=== PATIENT | female | born 1955 | race Caucasian/White ===

== ENCOUNTER 2017-10-26 11:23 | Emergency (ER) | payer MEDICARE, OTHER ==
[~2017-10-26] VITALS: Ht 152.4 cm; Wt 64.9 kg
--- NOTE | 2017-10-26 11:55 | NUR ---
A/O X4. VSS. PT STABLE CONDITION. NEG ACUTE DISTRESS. NECK PAIN X 2 DAYS, DENIES ANY INJURY. SAFTEY MEASURES IN PLACE.
[2017-10-26] MEDS ORDERED: CYCLOBENZAPRINE 10 MG TABLET ONE (11:58)
[2017-10-26] MEDS ORDERED: IBUPROFEN 600 MG TABLET PO ONE ×2 (11:59→12:00)
[2017-10-26] MEDS ORDERED: CYCLOBENZAPRINE 10 MG TABLET PO ONE (12:00)
[2017-10-26 12:19] VITALS: BP 132/70
== END 2017-10-26 12:20 | disposition home or self-care (01) ==
LOC: ER 11:28
DX: S13.4XXA Sprain of ligaments of cervical spine, initial encounter (principal); I10 Essential (primary) hypertension; J45.909 Unspecified asthma, uncomplicated; E11.9 Type 2 diabetes mellitus without complications; Z86.718 Personal history of other venous thrombosis and embolism; X58.XXXA Exposure to other specified factors, initial encounter; Y93.89 Activity, other specified; Y92.89 Other specified places as the place of occurrence of the external cause; Y99.8 Other external cause status
CPT/HCPCS: A4606; Z7610

== ENCOUNTER 2022-05-31 12:32 | Outpatient (CLI) | payer MEDICARE, OTHER | END 2022-05-31 23:59 | disposition home or self-care (01) | LOC: RAD 12:32 | PROVIDERS: ATTEND Surgery | DX: I70.0 Atherosclerosis of aorta (principal); R06.02 Shortness of breath; Z87.09 Personal history of other diseases of the respiratory system | CPT/HCPCS: 71046 ==